=== PATIENT | female | born 1945 | race Caucasian/White ===

== ENCOUNTER 2019-01-16 13:37 | Outpatient (CLI) | payer MEDICARE, MEDICAID ==
[2019-01-16 14:19] LABS: BASOPHILS # (AUTO) 0.1 10^3/uL (0.0-0.1); BASOPHILS % (AUTO) 0.8 %; EOSINOPHILS # (AUTO) 0.4 10^3/uL (0.0-0.7); EOSINOPHILS % (AUTO) 3.8 %; LYMPHOCYTES # (AUTO) 2.2 10^3/uL (1.5-3.5); LYMPHOCYTES % (AUTO) 23.3 %; MEAN CORPUSCULAR HEMOGLOBIN 30.1 pg (27.0-31.0); MEAN CORPUSCULAR HGB CONC 32.7 g/dL (32.0-36.0); MEAN PLATELET VOLUME 10.1 fL (7.9-10.8); MONOCYTES # (AUTO) 0.8 10^3/uL (0.0-1.0); MONOCYTES % (AUTO) 8.1 %; NEUTROPHILS # (AUTO) 5.9 10^3/uL (1.5-6.6); NEUTROPHILS % (AUTO) 63.6 %; PLT - PLATELET COUNT 240 10^3/uL (130-450); RED BLOOD COUNT 4.65 10^6/uL (4.20-5.40); WHITE BLOOD COUNT 9.2 x10^3/uL (4.8-10.8)
[2019-01-16 14:24] LABS: ALBUMIN/GLOBULIN RATIO 1.2 (1.0-2.2); BILIRUBIN,TOTAL 0.7 mg/dL (0.2-1.0); CALCIUM 9.4 mg/dL (8.5-10.3); CREATININE 0.7 mg/dL (0.4-1.0); TOTAL PROTEIN 7.3 g/dL (6.7-8.2)
[2019-01-16 14:54] LABS: THYROID STIMULATING HORMONE 0.28 uIU/mL (0.34-5.60)
[2019-01-16 14:56] LABS: FREE T4 (FREE THYROXINE) 0.59 ng/dL (0.58-1.64)
== END 2019-01-16 13:38 | disposition home or self-care (01) ==
LOC: LAB 13:37
PROVIDERS: ATTEND Family Medicine
DX: E03.9 Hypothyroidism, unspecified (principal)
CPT/HCPCS: 36415; 80053; 84439; 84443; 84481; 85025

== ENCOUNTER 2019-02-22 14:59 | Outpatient (CLI) | payer MEDICARE, MEDICAID ==
[2019-02-22 16:09] LABS: FERRITIN 30.6 ng/mL (11.0-306.8)
[2019-02-22 16:12] LABS: FOLATE 21.12 ng/mL (5.90 - >24.8)
[2019-02-22 16:23] LABS: % IRON SATURATION 29 % (20-50); IRON 97 ug/dL (28-170); TOTAL IRON BINDING CAPACITY 336 ug/dL (250-450); TRANSFERRIN 240 mg/dL (192-382)
== END 2019-02-22 15:00 | disposition home or self-care (01) ==
LOC: LAB 14:59
PROVIDERS: ATTEND Family Medicine
DX: F41.8 Other specified anxiety disorders (principal); G47.00 Insomnia, unspecified
CPT/HCPCS: 36415; 82607; 82728; 82746; 83540; 84466

== ENCOUNTER 2019-09-06 15:16 | Outpatient (CLI) | payer MEDICARE, MEDICAID ==
[2019-09-06 18:39] LABS: T4 (THYROXINE) 13.24 ug/dL (6.09-12.23)
[2019-09-06 18:45] LABS: THYROID STIMULATING HORMONE 17.38 uIU/mL (0.34-5.60)
[2019-09-06 18:46] LABS: FREE T4 (FREE THYROXINE) 0.43 ng/dL (0.58-1.64)
== END 2019-09-06 23:59 | disposition home or self-care (01) ==
LOC: LAB.N 15:16
PROVIDERS: ATTEND Family Medicine
DX: E03.9 Hypothyroidism, unspecified (principal)
CPT/HCPCS: 36415; 84436; 84439; 84443; 84481; 86800

== ENCOUNTER 2019-11-17 08:00 | Outpatient (CLI) | payer MEDICARE, MEDICAID | END 2019-11-17 23:59 | disposition home or self-care (01) | LOC: LAB.WCP 08:00 | PROVIDERS: ATTEND Family Medicine | DX: K31.89 Other diseases of stomach and duodenum (principal) | CPT/HCPCS: 36415; 83516 ==

== ENCOUNTER 2020-01-02 12:48 | Outpatient (CLI) | payer MEDICARE, MEDICAID ==
--- NOTE | 2020-01-02 14:04 | SLEEP CARE CONSULTATION ---
Information from patient questionnaire entered by Maricruz Parekh. I have reviewed and concur with the information entered by Maricruz Parekh. This document represents the service I personally performed and the decisions made by me, Rosy Ordonez ARNP. History of Present Illness Service Date and Time: 01/02/2020 1248 Reason for Visit: New patient Chief Complaint: reports: Insomnia (nightly, lies awake, stopped zolpidem; watching TV to get sleepy nightly), Unrefreshed sleep, Snoring, Excessive daytime sleepiness (intermittent), Fatigue. denies: Observed pauses in breathing, Frequent awakenings at night Duration of Symptoms: unsure, a long time Usual bedtime: 8319-9114 Time it takes to fall asleep: a long time; avg >3 hrs Snores at night: Yes Observed to quit breathing while asleep: No Sleeps alone due to snoring: Yes (partner snores, too) Number of times waking at night: none because of meds Reasons for waking at night: reports: Snoring. denies: Choking, Gasping for air, Pain, Bathroom Toss, Turn, or Twitch while sleeping: No Recalls having dreams: Yes Usually gets out of bed at: [id number], 1000; likes to get up early Feels refreshed in the morning: No Morning headache: Yes (infrequently, none with zolpidem, VILLATORO steady dull ache, resolves w/in hour) Sleepy or fatigued during the day: Yes Ever fallen asleep while driving: No Takes day naps: Yes Dreams during day naps: Yes Prior sleep studies: No - Parasomnia Symptoms Ever been unable to move upon waking from sleep: No Walks in sleep: No Talks in sleep: No Ever acted out dreams in sleep: No Ever felt weak in the knees when startled or emotional: No Bothered by creepy, crawly, restless sensations in legs: Yes (nightly leg jerks) Problems with memory or concentration: Yes (memory problems 2-3 months, first in years) Subjective Initial [place] Sleepiness Scale score: 8 Past Medical History Past Medical History: reports: Hypothyroidism (taking thyroid medication but still have every hypo symptom). denies: Hypertension, Congestive Heart Failure, Diabetes, Stroke, Arthritis, Coronary Heart Disease, Anemia, Depression (difficult with losing function and poor health but not really depressed, "just down"), GERD Social History The patient's occupation is retired. Patient is and lives in [place]. Have you smoked in the past 12 months: No Cigarettes per day (20/pack): 15 (10-20) Years of smokin Quit date: 1999 Smoking Pack Years: 21.0 Alcohol use: Yes Alcohol amount and frequency: wine, 2-3x/year Caffeine use: Yes Caffeine amount and frequency: occassional soda Family History Family history of sleep disordered breathing: No Allergies and Home Medications Drug allergies reviewed: Yes (NKDA, possible food allergies, gluten and dairy) Home medication list reviewed: Yes (levothyroxine) Review of Systems Weight gain over past 5 years: 40 Cardiovascular: reports: palpitations (with thyroid problems, not normally). denies: irregular heart rate or pulse, have to sleep sitting up Respiratory: reports: chronic cough, other (uses two pillows to sleep/breathe better). denies: shortness of breath, wheeze, sputum production Gastrointestinal: reports: heartburn, other (indigestion). denies: difficulty swallowing, nausea, vomitting, diarrhea, abdominal pain Urinary: reports: incontinence (in A.M.), urgency (occasional). denies: frequency Neurological: reports: headaches (have had upon waking). denies: head trauma, disorientation, speech dysfunction, gait or balance problems Psychiatric: denies: anxiety, depression Ear/Nose/Throat: reports: nasal congestion, dry mouth/throat (*mouth, just in mornings), tonsillectomy, wisdom teeth removed, other (dental challenges). denies: sinus problems, nose bleeds, injury to nose Endocrine: reports: thyroid disease, sluggishness, too hot or cold (colder than others), unexplained weakness. denies: history of goiter, excessive thirst, increased appetite Musculoskeletal: reports: back pain (lower back when on my feet a long time). denies: joint pain, neck pain Immunologic: reports: sneezing (seems to follow dairy ingestion), itching (scalp), allergies to food or environment (gluten sensitivity) Physical Exam Heart Rate: 75 O2 Saturation: 97 Height: 5 ft 5 in Weight: 183 lb Body Mass Index: 30.4 BMI Classification: Obese Neck circumference: 14 (inch) Nasal exam: negative: erythema, excoriation, scabs, blood tinged nasal secretions, other Nostrils: patent to airflow Turbinates: boggy Septum: midline Mouth and throat: normal Soft palate: normal Hard palate: normal Uvula: normal Uvula visualization: 50% Mallampati Class II Tongue: normal in size Tonsils: absent bilaterally Chin and jaw: normal size and position Neck: normal w/o lymphadenopathy or thyromegaly Heart: regular rate and rhythm Lungs: clear bilaterally Impression and Plan 1. Suspected Obstructive Sleep Apnea-Hypopnea Syndrome, as suggested by a history of loud and irregular snoring, gasping when waking during sleep, occasional morning headaches that resolve within hour, unrefreshed sleep, cognitive impairment (problems with memory in last 2-3 months), and excessive daytime sleepiness over the last year. Patient does have hypothyroidism that she feels is being under treated because she continues to have symptoms with treatment. Narrow oropharynx and obesity are common predisposing factors for obstructive sleep apnea-hypopnea syndrome. I recommend proceeding to polysomnography to confirm the diagnosis and to assess severity. I informed the patient of what the sleep studies involve and after some discussion, obtained agreement to proceed. The pathophysiology of obstructive sleep apnea-hypopnea syndrome was discussed with the patient and health risks of cardiovascular and cerebrovascular disease if not treated. AASM brochure for obstructive sleep apnea-hypopnea syndrome given and reviewed. Risks of drowsy driving discussed in detail and patient advised to avoid long distance driving and to sample puller at the first sign of drowsiness. Patient agreed to plan. * Schedule polysomnography and return in 1-2 weeks after the study to discuss result and initiate therapy. * Avoid long distance driving or driving when feeling sleepy. * Avoid alcohol, sedative and muscle relaxant around bedtime. * Attempt to lose weight. * Review instructions provided by trained office staff on how to prepare for the sleep study. * Return for follow-up after sleep study completed. Visit Type: In Office Time Spent with Patient (minutes): 32 Provider Statement: I spent 100% of the Face to Face Visit with the patient with greater than 50% spent counseling the patient and coordination of care.
== END 2020-01-02 12:49 | disposition home or self-care (01) ==
LOC: SC 12:48
PROVIDERS: ATTEND Nurse Practitioner Family
DX: G47.10 Hypersomnia, unspecified (principal); R53.83 Other fatigue; R51 Headache; R06.83 Snoring; E66.9 Obesity, unspecified; Z68.30 Body mass index [BMI] 30.0-30.9, adult
CPT/HCPCS: 99204; G0463; 99212

== ENCOUNTER 2020-01-03 14:31 | Outpatient (CLI) | payer MEDICARE, MEDICAID ==
[2020-01-03 17:54] LABS: FREE T4 (FREE THYROXINE) 1.54 ng/dL (0.58-1.64)
== END 2020-01-03 14:32 | disposition home or self-care (01) ==
LOC: LAB 14:31
PROVIDERS: ATTEND Family Medicine
DX: E03.9 Hypothyroidism, unspecified (principal)
CPT/HCPCS: 36415; 84439; 84443

== ENCOUNTER 2020-07-02 08:17 | Outpatient (CLI) | payer MEDICARE, MEDICAID ==
[2020-07-02 08:52] LABS: BASOPHILS # (AUTO) 0.1 10^3/uL (0.0-0.1); BASOPHILS % (AUTO) 0.8 %; EOSINOPHILS # (AUTO) 0.4 10^3/uL (0.0-0.7); EOSINOPHILS % (AUTO) 5.2 %; LYMPHOCYTES # (AUTO) 2.2 10^3/uL (1.5-3.5); LYMPHOCYTES % (AUTO) 25.5 %; MEAN CORPUSCULAR HEMOGLOBIN 31.3 pg (27.0-31.0); MEAN CORPUSCULAR HGB CONC 33.2 g/dL (32.0-36.0); MEAN CORPUSCULAR VOLUME 94.2 fL (81.0-99.0); MEAN PLATELET VOLUME 10.1 fL (7.9-10.8); MONOCYTES # (AUTO) 0.6 10^3/uL (0.0-1.0); MONOCYTES % (AUTO) 7.5 %; NEUTROPHILS # (AUTO) 5.2 10^3/uL (1.5-6.6); NEUTROPHILS % (AUTO) 60.6 %; PLT - PLATELET COUNT 216 10^3/uL (130-450); RED BLOOD COUNT 4.48 10^6/uL (4.20-5.40); RED CELL DISTRIBUTION WIDTH 12.9 % (12.0-15.0); WHITE BLOOD COUNT 8.5 x10^3/uL (4.8-10.8)
[2020-07-02 09:13] LABS: % IRON SATURATION 26 % (20-50); ALBUMIN 3.9 g/dL (3.2-5.5); ALBUMIN/GLOBULIN RATIO 1.1 (1.0-2.2); ALKALINE PHOSPHATASE 91 IU/L (42-121); ALT ALANINE AMINOTRANSFERASE 13 IU/L (10-60); AST ASPARTATE AMINOTRANSFERASE 16 IU/L (10-42); BILIRUBIN,TOTAL 0.8 mg/dL (0.2-1.0); BUN - BLOOD UREA NITROGEN 14 mg/dL (6-20); CALCIUM 9.1 mg/dL (8.5-10.3); CARBON DIOXIDE - CO2 24 mmol/L (21-32); CHLORIDE 107 mmol/L (101-111); CHOLESTEROL 163 mg/dL; CREATININE 0.8 mg/dL (0.4-1.0); GLUCOSE 114 mg/dL (70-100); HDL CHOLESTEROL 41 mg/dL; IRON 93 ug/dL (28-170); LDL CHOLESTEROL,CALCULATED 96 mg/dL; LDL/HDL RATIO 2.3 (<4.4); SODIUM 139 mmol/L (135-145); TOTAL IRON BINDING CAPACITY 360 ug/dL (250-450); TOTAL PROTEIN 7.3 g/dL (6.7-8.2); TRANSFERRIN 257 mg/dL (192-382); VLDL CHOLESTEROL 26 mg/dL
[2020-07-02 09:25] LABS: CORTISOL 12.4 ug/dL
[2020-07-02 09:29] LABS: FREE T3 4.79 pg/mL (2.5-3.9)
[2020-07-02 09:32] LABS: FERRITIN 42.7 ng/mL (11.0-306.8)
[2020-07-02 09:34] LABS: PROLACTIN 7.12 ng/mL
[2020-07-02 09:54] LABS: LUTEINIZING HORMONE 12.52 mIU/mL
[2020-07-02 12:12] LABS: HEMOGLOBIN A1c% 5.6 % (4.27-6.07)
[2020-07-02 12:30] LABS: FREE T4 (FREE THYROXINE) 0.52 ng/dL (0.58-1.64)
== END 2020-07-02 08:18 | disposition home or self-care (01) ==
LOC: LAB 08:17
PROVIDERS: ATTEND Internal Medicine
DX: R73.01 Impaired fasting glucose (principal); D64.9 Anemia, unspecified; E03.9 Hypothyroidism, unspecified
CPT/HCPCS: 36415; 80053; 80061; 81599; 82024; 82043; 82088; 82533; 82570; 82607; 82728; 83002; 83036; 83540; 83721; 84146; 84305; 84439; 84443; 84466; 84481; 85025

== ENCOUNTER 2020-07-03 15:04 | Outpatient (CLI) | payer MEDICARE, MEDICAID ==
[2020-07-03 16:00] LABS: CREATININE,URINE 174.4 mg/dL; MICROALBUM/CREATININE RATIO,UR 5.7 ug/mg (<30.0)
== END 2020-07-03 15:05 | disposition home or self-care (01) ==
LOC: LAB 15:04
PROVIDERS: ATTEND Internal Medicine
DX: R73.01 Impaired fasting glucose (principal); E03.9 Hypothyroidism, unspecified
CPT/HCPCS: 82043; 82570

== ENCOUNTER 2020-09-03 13:16 | Outpatient (CLI) | payer MEDICARE, MEDICAID ==
[2020-09-03] MEDS ORDERED: ALBUTEROL 1 PUFF INH STA (15:50)
== END 2020-09-03 13:17 | disposition home or self-care (01) ==
LOC: RT 13:16
PROVIDERS: ATTEND Internal Medicine
DX: R05 Cough (principal); Z72.0 Tobacco use
CPT/HCPCS: 94060; 94729

== ENCOUNTER 2020-10-01 12:03 | Outpatient (CLI) | payer MEDICARE, MEDICAID ==
--- NOTE | 2020-10-01 18:29 | CT Report ---
PROCEDURE: Low Dose Lung Cancer Screen INDICATIONS: HX OF SMOKING TECHNIQUE: Noncontrast low-dose 5 mm thick sections acquired from the pulmonary apices to the posterior costophr enic angles. 7 mm thick coronal and sagittal MIP reformats were then acquired. For radiation dose r eduction, the following was used: automated exposure control, adjustment of mA and/or kV according t o patient size. COMPARISON: None. FINDINGS: Image quality: Slightly limited by respiratory motion artifact. Lungs and pleura: Calcified granuloma noted in the dependent portion of the left lower lobe (image 1 14, series 4). No suspicious pulmonary nodules or mass lesions. There is diffuse, bilateral subpleura l thickening and scarring involving both upper and lower lobes as well as the right middle lobe. Find ings are most severe in the right lung apex, inferior right upper lobe, and lingula. Patchy bibasilar atelectasis. No septal thickening or nodularity. Bilateral upper lung predominant pulmonary emphysem atous changes. Mediastinum: Heart size is normal. No pericardial effusion. No mediastinal adenopathy by size crit eria. Thoracic aorta and central pulmonary arteries are normal in size. Atherosclerotic calcificati ons of the thoracic aorta. Esophagus is normal in caliber. No hiatal hernia. Bones and chest wall: No suspicious bony lesions. No acute vertebral body compression fractures. N o axillary or supraclavicular adenopathy by size criteria. The thyroid is normal in size. Abdomen: Cholelithiasis without CT evidence for acute cholecystitis. Visualized upper abdomen solid o rgans and bowel loops appear normal in the absence of contrast. IMPRESSION: 1. CT chest without acute cardiopulmonary abnormalities. 2. Bilateral upper lung predominant pulmonary emphysematous changes. 3. Diffuse, bilateral subpleural thickening and scarring likely related to pulmonary emphysematous ch anges and/or chronic interstitial lung disease. 4. No suspicious pulmonary nodules or mass lesions. 5. Atherosclerotic vascular disease. 6. Cholelithiasis without CT evidence for acute cholecystitis. Lung RADS 1: Recommend continued annual screening chest CT in 12 months. Reviewed by: Willian Gonazlez MD on 10/01/2020 6:27 PM PDT Approved by: Willian Gonzalez MD on 10/01/2020 6:27 PM PDT Station ID: [id number]
== END 2020-10-01 12:04 | disposition home or self-care (01) ==
LOC: DI 12:03
PROVIDERS: ATTEND Internal Medicine
DX: Z12.2 Encounter for screening for malignant neoplasm of respiratory organs (principal); Z87.891 Personal history of nicotine dependence; J43.9 Emphysema, unspecified; I25.812 Atherosclerosis of bypass graft of coronary artery of transplanted heart without angina pectoris; K80.20 Calculus of gallbladder without cholecystitis without obstruction

== ENCOUNTER 2021-01-28 12:37 | Outpatient (CLI) | payer MEDICARE, MEDICAID ==
[2021-01-28 13:30] LABS: THYROID STIMULATING HORMONE 28.63 uIU/mL (0.34-5.60)
[2021-01-28 13:31] LABS: FREE T3 5.61 pg/mL (2.5-3.9)
[2021-01-28 13:32] LABS: FREE T4 (FREE THYROXINE) 0.43 ng/dL (0.58-1.64)
== END 2021-01-28 12:38 | disposition home or self-care (01) ==
LOC: LAB 12:37
PROVIDERS: ATTEND Internal Medicine
DX: E03.9 Hypothyroidism, unspecified (principal)
CPT/HCPCS: 36415; 84439; 84443; 84480; 84481

== ENCOUNTER 2022-01-08 08:11 | Outpatient (CLI) | payer MEDICARE, MEDICAID ==
[2022-01-08 08:32] LABS: BASOPHILS # (AUTO) 0.1 10^3/uL (0.0-0.1); BASOPHILS % (AUTO) 1.2 %; EOSINOPHILS # (AUTO) 0.5 10^3/uL (0.0-0.7); EOSINOPHILS % (AUTO) 7.5 %; HCT - HEMATOCRIT 42.5 % (37.0-47.0); HGB - HEMOGLOBIN 13.9 g/dL (12.0-16.0); LYMPHOCYTES # (AUTO) 1.7 10^3/uL (1.5-3.5); LYMPHOCYTES % (AUTO) 26.8 %; MEAN CORPUSCULAR HGB CONC 32.7 g/dL (32.0-36.0); MEAN CORPUSCULAR VOLUME 91.8 fL (81.0-99.0); MEAN PLATELET VOLUME 10.3 fL (7.9-10.8); MONOCYTES # (AUTO) 0.6 10^3/uL (0.0-1.0); NEUTROPHILS # (AUTO) 3.5 10^3/uL (1.5-6.6); NEUTROPHILS % (AUTO) 54.2 %; PLT - PLATELET COUNT 207 10^3/uL (130-450); RED BLOOD COUNT 4.63 10^6/uL (4.20-5.40); RED CELL DISTRIBUTION WIDTH 12.7 % (12.0-15.0); WHITE BLOOD COUNT 6.4 x10^3/uL (4.8-10.8)
[2022-01-08 09:02] LABS: % IRON SATURATION 12 % (20-50); ALBUMIN 3.7 g/dL (3.2-5.5); ALBUMIN/GLOBULIN RATIO 1.1 (1.0-2.2); ALKALINE PHOSPHATASE 78 IU/L (42-121); ALT ALANINE AMINOTRANSFERASE 17 IU/L (10-60); AST ASPARTATE AMINOTRANSFERASE 23 IU/L (10-42); BILIRUBIN,TOTAL 0.6 mg/dL (0.2-1.0); BUN - BLOOD UREA NITROGEN 14 mg/dL (6-20); CALCIUM 9.1 mg/dL (8.5-10.3); CARBON DIOXIDE - CO2 25 mmol/L (21-32); CHLORIDE 109 mmol/L (101-111); CHOL/HDL RATIO 4.1 (<4.4); CHOLESTEROL 154 mg/dL; CREATININE 0.7 mg/dL (0.4-1.0); GFR - MDRD 81 (>89); GLUCOSE 115 mg/dL (70-100); HDL CHOLESTEROL 38 mg/dL; IRON 41 ug/dL (28-170); LDL CHOLESTEROL,CALCULATED 101 mg/dL; LDL/HDL RATIO 2.7 (<4.4); SODIUM 140 mmol/L (135-145); TOTAL IRON BINDING CAPACITY 335 ug/dL (250-450); TRANSFERRIN 239 mg/dL (192-382); TRIGLYCERIDES 76 mg/dL; VLDL CHOLESTEROL 15 mg/dL
[2022-01-08 09:10] LABS: THYROID STIMULATING HORMONE < 0.08 uIU/mL (0.34-5.60)
[2022-01-08 09:12] LABS: FREE T4 (FREE THYROXINE) 1.35 ng/dL (0.58-1.64)
[2022-01-08 09:18] LABS: FERRITIN 54.6 ng/mL (11.0-306.8)
[2022-01-08 09:21] LABS: FOLATE 16.83 ng/mL (5.90 - >24.8)
[2022-01-08 11:19] LABS: ESTIMATED AVERAGE GLUCOSE 117 mg/dL (70-100); HEMOGLOBIN A1c% 5.7 % (4.27-6.07)
== END 2022-01-08 08:12 | disposition home or self-care (01) ==
LOC: LAB 08:11
PROVIDERS: ATTEND Internal Medicine
DX: E03.9 Hypothyroidism, unspecified (principal); D64.9 Anemia, unspecified; R73.01 Impaired fasting glucose; Z13.220 Encounter for screening for lipoid disorders
CPT/HCPCS: 36415; 80053; 80061; 82607; 82728; 82746; 83036; 83540; 83721; 84439; 84443; 84466; 84481; 85025

== ENCOUNTER 2022-05-04 10:50 | Outpatient (CLI) | payer MEDICARE, MEDICAID ==
[2022-05-04 11:11] LABS: BASOPHILS # (AUTO) 0.1 10^3/uL (0.0-0.1); BASOPHILS % (AUTO) 0.5 %; EOSINOPHILS # (AUTO) 0.4 10^3/uL (0.0-0.7); EOSINOPHILS % (AUTO) 3.9 %; HCT - HEMATOCRIT 45.8 % (37.0-47.0); HGB - HEMOGLOBIN 14.7 g/dL (12.0-16.0); LYMPHOCYTES # (AUTO) 2.1 10^3/uL (1.5-3.5); LYMPHOCYTES % (AUTO) 21.2 %; MEAN CORPUSCULAR HEMOGLOBIN 29.9 pg (27.0-31.0); MEAN CORPUSCULAR HGB CONC 32.1 g/dL (32.0-36.0); MEAN CORPUSCULAR VOLUME 93.3 fL (81.0-99.0); MEAN PLATELET VOLUME 9.6 fL (7.9-10.8); MONOCYTES # (AUTO) 0.6 10^3/uL (0.0-1.0); MONOCYTES % (AUTO) 6.4 %; NEUTROPHILS # (AUTO) 6.6 10^3/uL (1.5-6.6); NEUTROPHILS % (AUTO) 67.6 %; PLT - PLATELET COUNT 230 10^3/uL (130-450); RED BLOOD COUNT 4.91 10^6/uL (4.20-5.40); RED CELL DISTRIBUTION WIDTH 13.4 % (12.0-15.0); WHITE BLOOD COUNT 9.8 x10^3/uL (4.8-10.8)
[2022-05-04 11:21] LABS: CREATININE 0.7 mg/dL (0.4-1.0); POTASSIUM 4.1 mmol/L (3.5-5.0)
[2022-05-04 11:42] LABS: THYROID STIMULATING HORMONE 0.73 uIU/mL (0.34-5.60)
[2022-05-04 11:44] LABS: FREE T3 5.49 pg/mL (2.5-3.9)
[2022-05-04 11:45] LABS: FREE T4 (FREE THYROXINE) 0.76 ng/dL (0.58-1.64)
== END 2022-05-04 10:51 | disposition home or self-care (01) ==
LOC: LAB 10:50
PROVIDERS: ATTEND Internal Medicine
DX: E03.9 Hypothyroidism, unspecified (principal); R73.01 Impaired fasting glucose; Z51.81 Encounter for therapeutic drug level monitoring; D64.9 Anemia, unspecified
CPT/HCPCS: 36415; 80048; 84439; 84443; 84481; 85025

== ENCOUNTER 2022-12-29 09:55 | Outpatient (CLI) | payer MEDICARE, MEDICAID ==
[2022-12-29 10:19] LABS: BASOPHILS # (AUTO) 0.1 10^3/uL (0.0-0.1); EOSINOPHILS # (AUTO) 0.4 10^3/uL (0.0-0.7); EOSINOPHILS % (AUTO) 5.2 %; HCT - HEMATOCRIT 41.9 % (37.0-47.0); HGB - HEMOGLOBIN 13.7 g/dL (12.0-16.0); LYMPHOCYTES # (AUTO) 1.7 10^3/uL (1.5-3.5); LYMPHOCYTES % (AUTO) 25.3 %; MEAN CORPUSCULAR HEMOGLOBIN 30.7 pg (27.0-31.0); MEAN CORPUSCULAR HGB CONC 32.7 g/dL (32.0-36.0); MEAN CORPUSCULAR VOLUME 93.9 fL (81.0-99.0); MONOCYTES # (AUTO) 0.5 10^3/uL (0.0-1.0); MONOCYTES % (AUTO) 7.7 %; NEUTROPHILS # (AUTO) 4.1 10^3/uL (1.5-6.6); NEUTROPHILS % (AUTO) 60.4 %; PLT - PLATELET COUNT 200 10^3/uL (130-450); RED BLOOD COUNT 4.46 10^6/uL (4.20-5.40); RED CELL DISTRIBUTION WIDTH 13.3 % (12.0-15.0); WHITE BLOOD COUNT 6.7 x10^3/uL (4.8-10.8)
[2022-12-29 10:37] LABS: ALBUMIN 3.8 g/dL (3.2-5.5); ALBUMIN/GLOBULIN RATIO 1.3 (1.0-2.2); ALKALINE PHOSPHATASE 78 IU/L (42-121); ALT ALANINE AMINOTRANSFERASE 16 IU/L (10-60); AST ASPARTATE AMINOTRANSFERASE 22 IU/L (10-42); BILIRUBIN,TOTAL 0.7 mg/dL (0.2-1.0); BUN - BLOOD UREA NITROGEN 12 mg/dL (6-20); CALCIUM 8.9 mg/dL (8.5-10.3); CARBON DIOXIDE - CO2 26 mmol/L (21-32); CHLORIDE 109 mmol/L (101-111); CHOL/HDL RATIO 3.5 (<4.4); CHOLESTEROL 184 mg/dL; CREATININE 0.7 mg/dL (0.4-1.0); GFR - MDRD 81 (>89); GLUCOSE 112 mg/dL (70-100); HDL CHOLESTEROL 52 mg/dL; LDL CHOLESTEROL,CALCULATED 116 mg/dL; LDL/HDL RATIO 2.2 (<4.4); POTASSIUM 3.9 mmol/L (3.5-5.0); SODIUM 141 mmol/L (135-145); TOTAL PROTEIN 6.7 g/dL (6.7-8.2); TRIGLYCERIDES 78 mg/dL; VLDL CHOLESTEROL 16 mg/dL
[2022-12-29 10:48] LABS: THYROID STIMULATING HORMONE 0.61 uIU/mL (0.34-5.60)
[2022-12-29 10:51] LABS: FREE T3 5.61 pg/mL (2.5-3.9)
[2022-12-29 10:52] LABS: FREE T4 (FREE THYROXINE) 0.87 ng/dL (0.58-1.64)
[2022-12-29 11:43] LABS: ESTIMATED AVERAGE GLUCOSE 111 mg/dL (70-100); HEMOGLOBIN A1c% 5.5 % (4.27-6.07)
== END 2022-12-29 09:56 | disposition home or self-care (01) ==
LOC: LAB 09:55
PROVIDERS: ATTEND Internal Medicine
DX: E03.9 Hypothyroidism, unspecified (principal); R73.01 Impaired fasting glucose; Z13.220 Encounter for screening for lipoid disorders; G93.32 Myalgic encephalomyelitis/chronic fatigue syndrome
CPT/HCPCS: 36415; 80053; 80061; 83036; 83721; 84439; 84443; 84481; 85025

== ENCOUNTER 2023-02-12 09:47 | Outpatient (CLI) | payer MEDICARE, MEDICAID ==
--- NOTE | 2023-02-12 12:29 | CT Report ---
PROCEDURE: CHEST WO INDICATIONS: HIST OF SMOKING TECHNIQUE: Noncontrast 1mm axial images were acquired from the pulmonary apices to the posterior costophrenic an gles. Axial 5 mm soft tissue kernel reconstructions were performed as well as 8 mm axial MIP and cor onal and sagittal 5 mm reformations. For radiation dose reduction, the following was used: automate d exposure control, adjustment of mA and/or kV according to patient size. COMPARISON: Lung screening CT dated 12/30/2021, 10/01/2020 FINDINGS: Image quality: Excellent. Lungs and pleura: No consolidation. No pleural effusions. No pneumothorax. The most significant pulm onary findings are chronic interstitial pulmonary fibrosis with honeycombing (UIP pattern), and a mauro pical predominance. There are also mild emphysematous changes. The clarity of the images is accentuat ed today compared to the other studies which were performed utilizing low-dose techniques. The degree of pulmonary fibrosis a be stable, allowing for differences in techniques. No pulmonary nodules. Mediastinum: Heart size is normal. No pericardial effusion. No large vessel abnormality. No mediastin al adenopathy by size criteria. Chest wall and lower neck: Thyroid is unremarkable. No axillary or supraclavicular adenopathy by size . Bones: No aggressive osseous abnormality. Upper Abdomen: Unremarkable. IMPRESSION: 1. Chronic interstitial pulmonary fibrosis with honeycombing symphysis UIP pattern). 2. Mild emphysematous change. 3. No findings suspicious for pulmonary malignancy. Comment: Recommend yearly lung screening follow-up,in 12 months, and less symptomatology progresses r equiring earlier imaging. Reviewed by: Andre Back MD on 02/12/2023 12:28 PM PDT Approved by: Andre Back MD on 02/12/2023 12:28 PM PDT Station ID: [id number]
== END 2023-02-12 09:48 | disposition home or self-care (01) ==
LOC: DI 09:47
PROVIDERS: ATTEND Internal Medicine
DX: R05.3 Chronic cough (principal); Z87.891 Personal history of nicotine dependence; J84.10 Pulmonary fibrosis, unspecified; J43.9 Emphysema, unspecified